=== PATIENT | female | born 1995 | race Caucasian/White ===

== ENCOUNTER 2021-11-01 12:39 | Inpatient (IN) | payer SELFPAY ==
[~2021-11-01] VITALS: Ht 162.6 cm; Wt 94.5 kg
[2021-11-01] VITALS (23 sets, daily range): BP systolic 103–154; BP diastolic 53–88; PULSE 64–93; TEMP 97.7–97.9
[2021-11-01] MEDS ORDERED: ZOLOFT 25MG25 MG PO (12:56)
[2021-11-01 13:09] LABS: BASO % 0.3 % (0.0-2.0); EOS # 0.1 K/mm3 (0.0-0.7); EOS % 0.6 % (0.0-4.0); GRAN # 8.5 K/mm3 (1.4-6.5); GRAN % 72.9 % (42.2-75.2); HEMATOCRIT 34.5 % (37.0-47.0); HEMOGLOBIN 11.5 g/dl (12.5-16.0); LYMPH # 2.3 K/mm3 (1.2-3.4); LYMPH % 19.7 % (20.0-51.0); MEAN CELL VOLUME 81 fl (80.0-100.0); MEAN CORPUSCULAR HEMOGLOBIN 27 pg (27-31); MEAN CORPUSCULAR HGB CONC 33 g/dl (33.0-37.0); MEAN PLATELET VOLUME 10.3 fl (7.4-10.4); MONO # 0.7 K/mm3 (0.1-0.6); MONO % 5.9 % (1.7-9.3); PLATELET COUNT 296 K/mm3 (130-400); RED BLOOD COUNT 4.28 M/mm3 (4.10-5.30); REDCELL DISTRIBUTION WIDTH-CV 13.1 % (11.5-14.5)
--- NOTE | 2021-11-01 13:40 | NUR ---
1340 PT SITTING UP ON SIDE OF BED FOR EPIDURAL PLACEMENT. LR BOLUS RUNNING, PULSE OX AND BP CUFF ON, EFM TRACING CATEGORY 1 AT THIS TIME. 1343 TEST DOSE ADMINISTERED BY FREDERIC BROUSSARD CRNA. PT TOLERATED WELL. VITAL SIGNS STABLE. EFM TRACING CATEGORY 1. 1350 PT BACK LYING LEFT SIDE, COMFORTABLE. EFM TRACING CAT 1, VITAL SIGNS STABLE. WILL CONTINUE TO MONITOR.
--- NOTE | 2021-11-01 14:02 | NUR ---
1230 PATIENT HERE FROM HOME WITH COMPLAINTS OF CONTRACTIONS THAT STARTED AT 5 AM AND ARE GETTING STRONGER. EFM ON FHT 120 BABY VERY ACTIVE. CONTRACTIONS EVERY 2-3 ,IN AND PALPATE FIRM. AMNIOTRACE NEGATIVE. SVE 6/100/[address] AYALA CALLED WITH ALL ABOVE INFORMATION AND ORDERS TO ADMIT PATIENT FOR LABOR AT THIS TIME. 1240 ASSESSMENT COMPLETED. IV STARTED BY Deangelo MARTE RN AT THIS TIME. FREDERIC FINNEGAN NOTIFIED FOR EPIDURAL.
--- NOTE | 2021-11-01 14:05 | NUR ---
1300 REPORT GIVEN TO Deangelo MARTE AND MONICO TO ASSUME CARE AT THIS TIME.
--- NOTE | 2021-11-01 15:27 | NUR ---
1527 PT COMPLAINING "I THINK MY WATER IS LEAKING AND I FEEL PRESSURE IN MY BUTT." THIS RN AT BEDSIDE, SVE 8/100/0, BULGING BAG NOTED AT THIS TIME. EFM TRACING CAT 1.
--- NOTE | 2021-11-01 15:46 | NUR ---
CALLS THIS NURSE AT THIS TIME FOR UPDATE. UPDATED ON MOST RECENT SVE, WITH BULGING BAG. CATEGORY 1 EFM TRACING AT THIS TIME. CONTRACTIONS Q2-3MIN APART. FIRM WITH PALPATION. EPIDURAL WORKING WELL, PT COMFORTABLE. CURRENT MATERNAL VITAL SIGNS STABLE. PER "I WILL BE THERE IN ABOUT 20 MINUTES TO AROM."
--- NOTE | 2021-11-01 16:47 | NUR ---
1617 DR. AYALA AT BEDSIDE FOR SVE, PT COMPLETE. ALL APPROPRIATE STAFF NOTIFIED. DR. AYALA BEGINS PUSHING WITH PATIENT. ROOM PREPARED FOR DELIVERY. 1647 OF VIABLE MALE DELIVERED BY DR. AYALA. INFANT PLACED ON MATERNAL ABDOMEN IMMEDIATELY FOLLOWING AND VINAY GUILLORY RN, TOOK OVER CARE OF . MECONIUM FLUID AND NCX1 NOTED. 1655 EXPRESSED DELIVERY OF PLACENTA. PERINEUM INTACT. LOCHIA WNL. FUNDUS FIRM AT UMBILICUS. PITOCIN BOLUS INFUSING PER PROTOCOL.
--- NOTE | 2021-11-01 18:45 | NUR ---
1845Fundus, firm, midline, and bleeding minimal. Pt to edge of bed. Denies dizziness/lightheadedness. Tape from BREEZY removed. Coco size clot noted to epidural site. Katherin Fairbanks CRNA on unit and notified. Katherin Fairbanks CRNA to bedside and assesses site. Epidural removed by Katherin Fairbanks CRNA, tip intact. Bandaid applied. Site okay with minimal bruising per MAINTENANCE HELPER UTILITY ENGINEER. 1850Pt ambulatory to bathroom and voids without difficulty. Antonieta care provided, pads changed, and clean gown on. Ambulatory to 216. Oriented to room and plan of care. Resting with call light within reach.
[2021-11-02 00:35] VITALS: BP 94/60; PULSE 61; TEMP 97.9
[2021-11-02 04:40] VITALS: BP 103/53; PULSE 70; TEMP 98.6
[2021-11-02 07:24] VITALS: BP 102/49; PULSE 69; TEMP 97.5
[2021-11-02] MEDS ORDERED: IBU600 MG PO (09:13)
--- NOTE | 2021-11-02 09:41 | NUR ---
Initial visit; Parents and big sister thanked Engine Maintenance Mechanic for offering congratulations and God's blessings for the of their son/brother. Engine Maintenance Mechanic thanked family for choosing [facility].
[2021-11-02 12:48] VITALS: BP 92/50; PULSE 57; TEMP 97.7
== END 2021-11-02 17:45 | disposition home or self-care (01) | DRG 807 ==
LOC: LDRO 12:39 → OB 12:40 → LDR 12:40 → OB 19:16
PROVIDERS: ADMIT Obstetrics & Gynecology
PROC: 10E0XZZ Delivery of Products of Conception, External Approach (ICD-10-PCS; principal; 2021-11-02)
DX: O99.02 Anemia complicating childbirth (principal); Z37.0 Single live birth; D64.9 Anemia, unspecified; O77.0 Labor and delivery complicated by meconium in amniotic fluid; O69.81X0 Labor and delivery complicated by cord around neck, without compression, not applicable or unspecified; Z3A.38 38 weeks gestation of pregnancy
CPT/HCPCS: J2795; J7120